=== PATIENT | male | born 1985 | race Caucasian/White ===

== ENCOUNTER 2020-10-02 12:47 | Emergency (ER) | payer OTHER, SELFPAY ==
--- NOTE | ~2020-10-02 | CT_ITS ---
EXAMINATION: CT ABDOMEN AND PELVIS WITH CONTRAST CLINICAL INFORMATION: Abdominal pain COMPARISON: 03/13/2020 TECHNIQUE: Multidetector volumetric images were obtained from the superior aspect of the liver through the pubic symphysis following administration 85 mL of Omnipaque 350 intravenous contrast. Sagittal and coronal reformatted images were obtained on the technologist's workstation. Oral contrast: No This CT examination was performed using dose optimization techniques as appropriate, variously including the following: *Automated exposure control *Adjustment of mA and/or kV according to patient size (this includes techniques or standardized protocols for targeted exams where dose is matched to indication/reason for exam; i.e. extremities or head) *Use of iterative reconstruction technique DLP: 474 mGy-cm FINDINGS: LUNG BASES: The visualized lung bases are unremarkable. LIVER, GALLBLADDER, AND BILIARY TREE: The liver is normal in size, shape, and attenuation. No focal hepatic lesion or biliary ductal dilatation is present. The gallbladder is unremarkable with no evidence of radiopaque gallstones, gallbladder wall thickening, or obvious pericholecystic inflammatory changes. PANCREAS: Unremarkable. SPLEEN: Unremarkable. ADRENAL GLANDS: Unremarkable. KIDNEYS AND URETERS: The kidneys are normal in size, shape, and attenuation. No hydronephrosis, hydroureter, or calculi seen. No perinephric stranding. BLADDER: Unremarkable. GASTROINTESTINAL TRACT: The stomach is unremarkable. Normal caliber small bowel. No obstruction. Normal appendix. No colonic wall thickening or inflammatory change. No free air or free fluid. ABDOMINAL WALL: No significant abdominal wall hernia. Right testicle retracted into the inguinal canal. LYMPH NODES: Normal. VASCULAR: Unremarkable. PELVIC VISCERA: The prostate and seminal vesicles are unremarkable. OSSEOUS STRUCTURES: Unremarkable. CT/CT abdomen pelvis w con IMPRESSION: No acute findings of the abdomen or pelvis. No inflammatory changes.
--- NOTE | ~2020-10-02 | XR_ITS ---
EXAMINATION: XR CHEST CLINICAL INFORMATION: Elevated white blood cell count COMPARISON: 03/13/2020 TECHNIQUE: 2 views of the chest were obtained. FINDINGS: Cardiac leads overlie the chest. The lungs are well expanded. There is no focal consolidation, edema, or effusion. No pneumothorax. The cardiomediastinal silhouette is within normal limits. No acute osseous abnormality. XR/XR chest 2V IMPRESSION: No acute pulmonary findings.
[2020-10-02 12:52] VITALS: BP 126/80; PULSE 66; O2SAT 100
--- NOTE | 2020-10-02 13:17 | ED.ABDPAIN ---
HPI - Abdominal Pain General Chief Complaint: General Medical Stated Complaint: ABD PAIN Time Seen by Provider: 10/02/20 12:50 Source: patient Mode of arrival: EMS Limitations: no limitations History of Present Illness HPI narrative: epigastric pain. In the waiting room patient had a syncopal event MD elicited complaint: abdominal pain Pertinent past history: gastritis Onset (ago): hour(s) Pain Consistency: constant Location: epigastric Severity: moderate Quality: cramping Exacerbating factors: eating Associated symptoms: nausea, vomiting, diarrhea and chills Related Data Previous Rx's Medication Instructions Recorded diphenhydramine HCl 25 mg capsule 25 mg PO DAILY PRN 30 Days #25 cap 09/28/20 prednisone 20 mg tablet 60 mg PO DAILY 3 Days #9 tab 09/28/20 Allergies Allergy/AdvReac Type Severity Reaction Status Date / Time No Known Allergies Allergy Unverified 03/16/20 19:46 Review of Systems Constitutional: Reports no additional constitutional complaints Eyes: Reports no additional eye complaints Denies dizziness Cardiovascular: Reports no additional cardiovascular complaints Respiratory: Reports as per HPI Gastrointestinal: Reports no additional gastrointestinal complaints Musculoskeletal: Reports no additional musculoskeletal complaints Skin/Breast: Denies rash Reports system reviewed and no additional complaints, except as documented, Denies dizziness and Denies Sensory deficit (Neuro) Psychiatric: Denies anxiety Physical Exam Vital Signs: Vital Signs: Last Vital Signs Temp 95.0 F L 10/02/20 15:13 Pulse 78 10/02/20 15:29 Resp 18 10/02/20 15:29 BP 113/74 10/02/20 15:29 Pulse Ox 100 10/02/20 15:29 Body Mass Index 28.8 Const: Other: ill appearing, diaphoretic Nutritional Appearance: average body habitus Orientation/consciousness: oriented to person and patient oriented x3 Limitations: no limitations HENMT: Head: Yes normal to inspection Ears: external ears normal General nose exam: Normal external nose present Mouth: Normal oral and palatal mucosa present and oropharynx normal Throat: Yes posterior oropharynx normal Eyes: General: appearance normal, both eyes and all related structures Neck: Other: supple Neck: Yes normal visual inspection Chest: Chest palpation & inspection: normal inspection of the chest Resp: Auscultation: clear to auscultation bilaterally Cardio: Jugular venous distension: no JVD Rate: regular rate Rhythm: regular rhythm Heart sounds: S1 normal heart sound present and S2 normal heart sound present GI: Other: epigastric tenderness, slight guarding Auscultation: normal bowel sounds : General: Yes no CVA tenderness Back/Spine/Pelvis: Back: no CVA tenderness Skin: General skin exam: no rashes or lesions noted Neuro: General: oriented to person and patient oriented x3 Cranial nerves: Yes CN's II-XII intact bilaterally Motor exam (neuro): 5/5 motor strength present throughout Sensory Exam: No Sensory deficit (Neuro) Extrem: General: Yes normal to inspection Psych: Appearance: grossly normal Course Course Course Narrative: A year ago patient had the same episode with a WBC 24k, he had CT abd which was negative. Patient currently has soft abdomen Reevaluation(s) Reevaluation #1: signed out to Dr. Barbosa [facility] - Abdominal Pain Lab Data Result diagrams: 10/02/20 13:54 10/02/20 13:54 Labs: Lab Results 10/02/20 10/02/20 10/02/20 Range/Units 13:02 13:54 13:54 WBC 30.8 H* (4.8-10.8) X10*3/uL RBC 5.12 (4.60-5.80) X10*6/uL Hgb 15.1 (14.0-18.0) g/dl Hct 43.8 (42-52) % MCV 85.5 (80-98) fL MCH 29.5 (27.0-33.0) pg MCHC 34.5 (31.0-36.0) g/dl RDW 13.0 (11.0-16.0) % Plt Count 451 H (160-400) X10*3/uL MPV 8.3 L (9.4-12.4) fL Immature Gran % (Auto) 1.1 H (0.0-0.4) % Neut % (Auto) 84.7 H (45-73) % Lymph % (Auto) 8.9 L (20-40) % Gates % (Auto) 4.7 (2-11) % Eos % (Auto) 0.3 (0-4) % Baso % (Auto) 0.3 (0-2) % Lymph # (Auto) 2.7 (1.2-4.9) X10*3/uL [place] # (Auto) 1.5 H (0.1-1.2) X10*3/uL Eos # (Auto) 0.1 (0.0-0.4) X10*3/uL Baso # (Auto) 0.1 (0.0-0.2) X10*3/uL Abs Immat Gran (auto) 0.33 H (0.00-0.03) X10*3/uL Absolute Neuts (auto) 26.1 H (2.0-8.3) X10*3/uL Absolute Nucleated RBC 0.000 (0.0-0.012) X10*3/uL Nucleated RBC % (auto) 0.0 (0.0-0.2) /100WBC Smear Tech's Comments VERIFIED Sodium 136 (135-145) mmol/L Potassium 3.8 (3.3-5.1) mmol/L Chloride 99 (96-108) mmol/L Carbon Dioxide 23 (22-29) mmol/L Anion Gap 18 (12-20) BUN 19 H (9-16) mg/dL Creatinine 0.90 (0.5-1.4) mg/dL Estim Creat Clear Calc 104.9 Estimated GFR > 60 POC Glucose 294 H (60-115) mg/dL Random Glucose 309 H (60-115) mg/dL Lactic Acid (0.5-2.0) mmol/L Calcium 9.6 (8.4-10.2) mg/dL Total Bilirubin 0.3 (0.0-1.0) mg/dL Direct Bilirubin 0.2 (0.0-0.5) mg/dL AST 16 (5-37) U/L ALT 14 (0-40) U/L Alkaline Phosphatase 100 (39-117) U/L Troponin I High Sens (<3.5-35.0) ng/L Total Protein 8.1 H (6.5-8.0) g/dL Albumin 4.8 (3.5-5.0) g/dL Lipase 15 (8-78) U/L Urine Color Urine Appearance Urine pH (5.0-8.0) Ur Specific [place] (1.005-1.025) Urine Protein (NEG-TRACE) MG/DL Urine Glucose (UA) (NEG) MG/DL Urine Ketones (NEG) MG/DL Urine Blood (NEG) Urine Nitrite (NEG) Ur Leukocyte Esterase (NEG) Urine RBC (0) /HPF Urine WBC (0-4) /HPF Ur Squamous Epith Cells /LPF Urine Bacteria /LPF Hyaline Casts /LPF 10/02/20 10/02/20 10/02/20 Range/Units 13:54 15:31 15:46 WBC (4.8-10.8) X10*3/uL RBC (4.60-5.80) X10*6/uL Hgb (14.0-18.0) g/dl Hct (42-52) % MCV (80-98) fL MCH (27.0-33.0) pg MCHC (31.0-36.0) g/dl RDW (11.0-16.0) % Plt Count (160-400) X10*3/uL MPV (9.4-12.4) fL Immature Gran % (Auto) (0.0-0.4) % Neut % (Auto) (45-73) % Lymph % (Auto) (20-40) % Gates % (Auto) (2-11) % Eos % (Auto) (0-4) % Baso % (Auto) (0-2) % Lymph # (Auto) (1.2-4.9) X10*3/uL [place] # (Auto) (0.1-1.2) X10*3/uL Eos # (Auto) (0.0-0.4) X10*3/uL Baso # (Auto) (0.0-0.2) X10*3/uL Abs Immat Gran (auto) (0.00-0.03) X10*3/uL Absolute Neuts (auto) (2.0-8.3) X10*3/uL Absolute Nucleated RBC (0.0-0.012) X10*3/uL Nucleated RBC % (auto) (0.0-0.2) /100WBC Smear Tech's Comments Sodium (135-145) mmol/L Potassium (3.3-5.1) mmol/L Chloride (96-108) mmol/L Carbon Dioxide (22-29) mmol/L Anion Gap (12-20) BUN (9-16) mg/dL Creatinine (0.5-1.4) mg/dL Estim Creat Clear Calc Estimated GFR POC Glucose (60-115) mg/dL Random Glucose (60-115) mg/dL Lactic Acid 1.9 (0.5-2.0) mmol/L Calcium (8.4-10.2) mg/dL Total Bilirubin (0.0-1.0) mg/dL Direct Bilirubin (0.0-0.5) mg/dL AST (5-37) U/L ALT (0-40) U/L Alkaline Phosphatase (39-117) U/L Troponin I High Sens < 3.5 (<3.5-35.0) ng/L Total Protein (6.5-8.0) g/dL Albumin (3.5-5.0) g/dL Lipase (8-78) U/L Urine Color STRAW Urine Appearance CLEAR Urine pH 5.5 (5.0-8.0) Ur Specific [place] 1.020 (1.005-1.025) Urine Protein NEG (NEG-TRACE) MG/DL Urine Glucose (UA) >=1000 H (NEG) MG/DL Urine Ketones 40 (NEG) MG/DL Urine Blood NEG (NEG) Urine Nitrite NEG (NEG) Ur Leukocyte Esterase NEG (NEG) Urine RBC 0-2 (0) /HPF Urine WBC 0-2 (0-4) /HPF Ur Squamous Epith Cells 1+ /LPF Urine Bacteria NONE /LPF Hyaline Casts 1-4 /LPF Discharge Plan Discharge Prescriptions: No Action prednisone 20 mg tablet 60 mg PO DAILY 3 Days Qty: 9 RF: 0 diphenhydramine HCl [Benadryl] 25 mg capsule 25 mg PO DAILY PRN (Reason: allergic reaction) 30 Days Qty: 25 RF: 0 PMFSH Past Medical History Medical History (Updated 10/02/20 @ 13:37 by Linda Spear RN) Diabetic acetonemia Social History Social History Alcohol intake: never Smoking Status: Current every day smoker Use of substances other than those prescribed or required for medical reasons: Yes Substance Use Type: Marijuana Substance Use Frequency: Daily Advance Directives: No Advance Directives Information Provided: Yes
[2020-10-02 13:23] VITALS: BP 125/71; PULSE 57; RESP 18; TEMP 36.1; O2SAT 100; BMI 28.8
[2020-10-02 13:23] LABS: Glucose, Whole Blood 294 mg/dL (60-115)
--- NOTE | 2020-10-02 13:32 | ECG_ITS ---
Test Reason : WEAKNESS Blood Pressure : / mmHG Vent. Rate : 062 BPM Atrial Rate : 065 BPM P-R Int : 148 ms QRS Dur : 082 ms QT Int : 428 ms P-R-T Axes : 070 067 044 degrees QTc Int : 434 ms Normal sinus rhythm with sinus arrhythmia Normal ECG When compared with ECG of 13-MAR-2020 11:57, Vent. rate has decreased BY 38 BPM Nonspecific T wave abnormality no longer evident in Inferior leads Nonspecific T wave abnormality no longer evident in Lateral leads Referred By: Luis Arriola Electronically Signed By:MARSHA JULIAN MD
--- NOTE | 2020-10-02 13:57 | PC.NURSE ---
iv inserted, labs drawn
[2020-10-02 14:04] LABS: Basophils Absolute Auto 0.1 X10*3/uL (0.0-0.2); Basophils Percent Auto 0.3 % (0-2); Eosinophils Absolute Auto 0.1 X10*3/uL (0.0-0.4); Eosinophils Percent Auto 0.3 % (0-4); Hematocrit 43.8 % (42-52); Hemoglobin 15.1 g/dl (14.0-18.0); Imm Gran Abs Auto 0.33 X10*3/uL (0.00-0.03); Imm Gran Pct Auto 1.1 % (0.0-0.4); Lymphocytes Absolute Auto 2.7 X10*3/uL (1.2-4.9); Lymphocytes Percent Auto 8.9 % (20-40); MANUAL DIFF FLAG SCAN; Mean Corpuscular HGB Conc 34.5 g/dl (31.0-36.0); Mean Corpuscular Hemoglobin 29.5 pg (27.0-33.0); Mean Corpuscular Volume 85.5 fL (80-98); Mean Platelet Volume 8.3 fL (9.4-12.4); Monocytes Absolute Auto 1.5 X10*3/uL (0.1-1.2); Monocytes Percent Auto 4.7 % (2-11); Neutrophils Absolute Auto 26.1 X10*3/uL (2.0-8.3); Neutrophils Percent Auto 84.7 % (45-73); Platelet Count 451 X10*3/uL (160-400); Red Blood Count 5.12 X10*6/uL (4.60-5.80); SCAN SMEAR FLAG 1
[2020-10-02] MEDS: Pantoprazole Sodium 40 MG/10 ML VIAL IVPUSH (14:07)
[2020-10-02] MEDS: Insulin Regular, Human 100 UNIT/ML 3 ML VIAL SUBCUT (14:07)
[2020-10-02] MEDS: ondansetron HCL 4 MG/2 ML VIAL IVPUSH (14:07)
[2020-10-02] MEDS: 0.9 % Sodium Chloride 1,000 ML 999 ML IVCONT ×2 (14:07→14:12)
[2020-10-02 14:09] LABS: White Blood Count 30.8 X10*3/uL (4.8-10.8)
--- NOTE | 2020-10-02 14:10 | PC.NURSE ---
Addendum entered by Linda Spear RN 10/02/20 14:10: patient medicated per order, monitoring tech sinus sudhir 50s-60s,vss, will continue to monitor. Original Note: patient
[2020-10-02 14:25] LABS: SLIDE REVIEW VERIFIED
[2020-10-02 14:34] LABS: Alanine Aminotransferase 14 U/L (0-40); Albumin Level 4.8 g/dL (3.5-5.0); Alkaline Phosphatase 100 U/L (39-117); Anion Gap 18 (12-20); Aspartate Amino Transferase 16 U/L (5-37); Bilirubin Direct 0.2 mg/dL (0.0-0.5); Bilirubin Total 0.3 mg/dL (0.0-1.0); Blood Urea Nitrogen 19 mg/dL (9-16); Calcium 9.6 mg/dL (8.4-10.2); Carbon Dioxide 23 mmol/L (22-29); Chloride 99 mmol/L (96-108); Creatinine Clr Calc Pharmacy 104.9; Estimated Glomerular Filt Rate > 60; Glucose Random 309 mg/dL (60-115); Lipase 15 U/L (8-78); Potassium 3.8 mmol/L (3.3-5.1); Sodium 136 mmol/L (135-145); Total Protein 8.1 g/dL (6.5-8.0)
[2020-10-02 14:39] LABS: Troponin-I High Sensitivity < 3.5 ng/L (<3.5-35.0)
[2020-10-02 15:13] VITALS: BP 126/68; PULSE 79; RESP 18; TEMP 35; O2SAT 100
--- NOTE | 2020-10-02 15:25 | PC.NURSE ---
blood cultures drawn, tech to draw VL as patients site blew before being able to obtain the VL
--- NOTE | 2020-10-02 15:27 | PC.NURSE ---
2 liters fluid completed at the same time at 1513.
[2020-10-02 15:29] VITALS: BP 113/74; PULSE 78; RESP 18; O2SAT 100
[2020-10-02 15:40] LABS: Glucose Urine UA >=1000 MG/DL (NEG); Leukocyte Esterase Urine NEG (NEG); Nitrite Urine NEG (NEG); PH 5.5 (5.0-8.0); Urine Blood NEG (NEG); Urine Ketones 40 MG/DL (NEG); Urine Protein NEG (NEG-TRACE)
[2020-10-02 15:47] LABS: Appearance Urine CLEAR; Color Urine STRAW
[2020-10-02 16:06] LABS: RBC Urine 0-2 /HPF (0); WBC Urine 0-2 /HPF (0-4)
[2020-10-02] MEDS: Morphine Sulfate 4 MG/ML CARTRIDGE IVPUSH (16:06)
--- NOTE | 2020-10-02 16:06 | PC.NURSE ---
pt medicated per order, vitals stable, director of cardiac rehabilitation sinus sudhir 60s, will continue to monitor.
[2020-10-02 16:07] LABS: Squamous Epithelial Cell Urine 1+ /LPF
[2020-10-02 16:10] LABS: Lactic Acid 1.9 mmol/L (0.5-2.0)
--- NOTE | 2020-10-02 16:46 | PC.NURSE ---
pt returned from CT scan, family at bedside
[2020-10-02] MEDS: Lidocaine HCl Viscous 2 % 15 ML SOLUTION MUCOUS MEM (18:01)
[2020-10-02] MEDS: Magnesium Hydrox/Alum Hydrox 30 ML ORAL.SUSP PO (18:01)
--- NOTE | 2020-10-02 18:01 | PC.NURSE ---
pt medicated per order
[2020-10-02 18:30] VITALS: BP 120/72; PULSE 72; RESP 18; TEMP 36.6; O2SAT 100
== END 2020-10-02 18:45 | disposition home or self-care (01) ==
PROVIDERS: Emergency Provider Emergency Medicine
DX: K29.00 Acute gastritis without bleeding (principal); D72.829 Elevated white blood cell count, unspecified; E11.9 Type 2 diabetes mellitus without complications; F12.90 Cannabis use, unspecified, uncomplicated; F17.200 Nicotine dependence, unspecified, uncomplicated; Z79.52 Long term (current) use of systemic steroids
CPT/HCPCS: 36415; 71046; 74177; 80048; 80076; 81001; 82947; 83605; 83690; 84484; 85025; 87040; 93005; 96361; 96374; 96375; 99284; 99285; J2270; J2405; Q9967

== ENCOUNTER 2021-08-04 15:38 | Emergency (ER) | payer OTHER, SELFPAY ==
--- NOTE | ~2021-08-04 | CT_ITS ---
EXAMINATION: CT ABDOMEN AND PELVIS WITHOUT CONTRAST CLINICAL INFORMATION: Left groin pain and swelling COMPARISON: CT abdomen and pelvis 10/02/2020 TECHNIQUE: Multidetector volumetric imaging was performed from the superior aspect of the liver through the pubic symphysis. Sagittal and coronal reformatted images were obtained on the technologist's workstation. This CT examination was performed using dose optimization techniques as appropriate, variously including the following: *Automated exposure control *Adjustment of mA and/or kV according to patient size (this includes techniques or standardized protocols for targeted exams where dose is matched to indication/reason for exam; i.e. extremities or head) *Use of iterative reconstruction technique DLP: 499 mGy-cm FINDINGS: LUNG BASES: The visualized lung bases are unremarkable. LIVER, GALLBLADDER, AND BILIARY TREE: The liver is normal in size, shape, and attenuation. No focal hepatic lesion or biliary ductal dilatation is present. The gallbladder is unremarkable with no evidence of radiopaque gallstones, gallbladder wall thickening, or obvious pericholecystic inflammatory changes. PANCREAS: Unremarkable. SPLEEN: Unremarkable. ADRENAL GLANDS: Unremarkable. KIDNEYS AND URETERS: The kidneys are normal in size, shape, and attenuation. No hydronephrosis, hydroureter, or calculi seen. No perinephric stranding. BLADDER: Empty and poorly evaluated GASTROINTESTINAL TRACT: The small and large bowel are unremarkable. The appendix is unremarkable. ABDOMINAL WALL: There is streaky density seen in the left groin subcutaneous tissues with associated skin thickening. A definite fluid collection is not seen. Some inguinal lymph nodes are present which are slightly more prominent than previously noted. No hernia is seen. LYMPH NODES: Small gastrohepatic ligament lymph nodes are unchanged. VASCULAR: Unremarkable. PELVIC VISCERA: Unremarkable. OSSEOUS STRUCTURES: Unremarkable. CT/CT abdomen pelvis wo con IMPRESSION: There is soft tissue swelling with streaky changes in the fat and associated skin thickening in the left groin possibly representing cellulitis. No fluid collection or abscess is seen. No groin hernia is present. No other abnormality is detected. Fleischner guidelines were followed.
[2021-08-04 15:41] VITALS: BP 118/74; PULSE 85; O2SAT 100
[2021-08-04 15:47] VITALS: BP 128/64; PULSE 84; RESP 18; TEMP 36.4; O2SAT 98; BMI 25.4
--- NOTE | 2021-08-04 16:29 | ED_ITS ---
HPI - Skin/Abscess/Foreign Bdy General Chief complaint: Skin/Abscess/Foreign Body Stated complaint: LEFT THIGH PAIN/SWELLING FROM CYST PER EMS Time Seen by Provider: 08/04/21 15:42 Source: patient and EMS Mode of arrival: EMS Limitations: no limitations History of Present Illness HPI narrative: 35-year-old male with a history of type 2 diabetes here with reports of left groin swelling and pain since waking yesterday. Patient denies any testicular pain, urinary symptoms, fevers, chills or vomiting. Patient tells me that he got up yesterday morning to urinate and that is when he noticed the bump. He denies any recent illnesses or fevers or chills. No new sexual partners. No rashes or joint pain. No recent history of heavy lifting with pain or any pain with coughing or sneezing. Related Data Previous Rx's Medication Instructions Recorded diphenhydramine HCl 25 mg capsule 25 mg PO DAILY PRN 30 Days #25 09/28/20 cap (Benadryl) prednisone 20 mg tablet 60 mg PO DAILY 3 Days #9 tab 09/28/20 dicyclomine 20 mg tablet 20 mg PO TID PRN #20 tab 10/02/20 pantoprazole 40 mg tablet,delayed 40 mg PO DAILY #30 tab 10/02/20 release (Protonix) sucralfate 1 gram tablet 1 g PO TID #90 tab 10/02/20 dicyclomine 20 mg tablet 20 mg PO TID PRN #10 tab 10/04/20 ondansetron HCl 4 mg tablet 4 mg PO Q8H PRN #10 tab 10/04/20 (Zofran) pantoprazole 40 mg tablet,delayed 40 mg PO DAILY #10 tab 10/04/20 release (Protonix) sucralfate 1 gram tablet 1 g PO TID #20 tab 10/04/20 (Carafate) doxycycline monohydrate 100 mg 100 mg PO BID #20 tab 08/04/21 tablet ibuprofen 600 mg tablet 600 mg PO Q6H PRN #20 tab 08/04/21 Allergies Allergy/AdvReac Type Severity Reaction Status Date / Time No Known Allergies Allergy Verified 08/04/21 15:49 Review of Systems Verdana 4l Review of Systems: Yes all other systems are reviewed and Verdana 4d are negative Verdana 4l Constitutional: Verdana 4d Constitutional: Verdana 4d Verdana 4d Reports no additional constitutional complaints, Denies body ache(s), Denies chills, Denies fever(s), Denies headache(s) and Denies weakness Verdana 4l Eyes: Verdana 4d Verdana 4d Eyes: Verdana 4d Reports no additional eye complaints and Denies change in vision Verdana 4l ENT: Verdana 4d Reports system reviewed and no additional complaints, except as documented, Denies dizziness, Denies headache(s), Denies nasal congestion, Denies nasal discharge and Denies neck pain Verdana 4l Cardiovascular: Verdana 4d Cardiovascular: Verdana 4d Verdana 4d Reports no additional cardiovascular complaints, Denies chest pain, Denies leg edema and Denies dyspnea Verdana 4l Respiratory: Verdana 4d Verdana 4d Respiratory: Verdana 4d Reports no additional respiratory complaints, Denies cough and Denies dyspnea Verdana 4l Gastrointestinal: Verdana 4d Gastrointestinal: Verdana 4d Verdana 4d Reports no additional gastrointestinal complaints, Denies abdominal pain, Denies diarrhea, Denies nausea and Denies vomiting Verdana 4l Genitourinary: Verdana 4d Verdana 4d Genitourinary: Verdana 4d Denies penile discharge, Denies testicular mass, Denies testicular pain, Denies urinary frequency, Denies urinary hesitancy, Denies urinary incontinence and Denies urinary urgency Verdana 4l Musculoskeletal: Verdana 4d Musculoskeletal: Verdana 4d Verdana 4d Reports no additional musculoskeletal complaints, Denies back pain, Denies arthralgias, Denies joint swelling, Denies neck pain, Denies numbness and Denies tingling Verdana 4l Integumentary/Breasts: Verdana 4d Skin/Breast: Verdana 4d Verdana 4d Reports system reviewed and no additional complaints, except as docu, Reports swelling, Reports erythema and Denies rash Verdana 4l Neurologic: Verdana 4d Reports system reviewed and no additional complaints, except as documented, Denies Abnormal speech present, Denies dizziness, Denies headache(s), Denies numbness, Denies tingling and Denies weakness PMFSH Past Medical History Attestation statement: The following information was validated with the patient. 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 Resp 18 08/04/21 15:47 BP 128/64 08/04/21 15:47 Pulse Ox 98 08/04/21 15:47 BMI result Body Mass Index 25.4 Const: General: cooperative, healthy appearing, comfortable and no acute distress Orientation/consciousness: patient oriented x3 Limitations: no limitations HENMT: Head: Yes normal to inspection Ears: hearing grossly normal bilaterally General nose exam: Normal external nose present Face and sinus: Yes normal facial exam Mouth: Normal oral and palatal mucosa present Throat: Yes posterior oropharynx normal Eyes: General: appearance normal, both eyes and all related structures Pupils: Equal, round and reactive pupils present Neck: Neck: Yes normal visual inspection Chest: Chest palpation & inspection: normal inspection of the chest Resp: Effort & Inspection: normal respiratory effort Auscultation: clear to auscultation bilaterally Cardio: Rate: regular rate Rhythm: regular rhythm Peripheral pulses: Peripheral pulses 2+ throughout GI: Inspection: Yes normal to inspection Palpation (GI): Soft to palpation and nontender Auscultation: normal bowel sounds : Male General Exam: Yes normal external exam Penis: uncircumcised Meatus: meatus normal Scrotum: scrotum normal Testes: Testes normal, no testicular mass, no testicular swelling, no testicular tenderness and normal testicular lie Male genitals images: 1. Swelling with tenderness. No palpable mass. No lymphadenopathy. No fluctuance or induration or central pointing or drainage to suggest an abscess. Back/Spine/Pelvis: Thoracic/Lumbar Spine: thoracic and lumbar spine normal to inspection Skin: General skin exam: no rashes or lesions noted Neuro: General: patient oriented x3, no focal motor deficits and normal sensation to monofilament Cranial nerves: Yes Equal, round and reactive pupils present Cognition (Neuro): normal cognition Speech: No Abnormal speech present Gait exam (Neuro): Normal gait present Motor exam (neuro): 5/5 motor strength present throughout Extrem: General: Yes normal to inspection Course Course Course Narrative: 35-year-old male here with reports of swelling and pain to the left groin since yesterday with waking. No other complaints On exam the patient has swelling and tenderness the left groin. There is no pa lpable lymphadenopathy. There is no fluctuance or induration or central pointing or drainage to suggest an abscess. Both testicles are normal with no tenderness. Ultrasound brought to the bedside which shows no drainable fluid collection ?hernia Check CT, labs, UA, provide analgesia 1744-Ct shows There is soft tissue swelling with streaky changes in the fat and associated skin thickening in the left groin possibly representing cellulitis. No fluid collection or abscess is seen. No groin hernia is present. No other abnormality is detected.? ? Add on lactic acid, blood cultures. 1744-Reviewed labs which show leukocytosis with no shift. On review of chart previous WBC (03/13/20-24.6, 10/02/20 30.8). ?chronic. No reports of fever. Additionally mildly elevated glucose with no evidence of DKA. UA shows >[address] NG pending. Patient wants to hold on treatment until results are back. Discussed case with Dr Garcia. Exam is not convincing for cellultis. as there is a local area of swelling/redness/erythema that is local to the groin with no extension to the abdomen/perineum or testicles. Very non impressive for cellulitis. No drainable collection seen on bedside US or CT scan. Patient is nontoxic appearing. He is afebrile. He is tolerating p.o. with no vomiting. I do not think patient requires admission as his labs appear at baseline and he appears well. Plan for discharge home on oral antibiotics and follow-up with PCP outpatient. Reviewed worrisome signs and symptoms such as fever, vomiting, increasing redness or swelling or any rapid progression of symptoms and when to return to the emergency department. Comfortable plan for discharge home MDM - Skin/Abscess/Foreign Bdy MDM Narrative Medical decision making narrative: low concern for fourniers with no extension into perineum, patient non toxic with stable vitals Medical Records Attestation: I reviewed the patient's medical records. Lab Data Attestation: I reviewed the patient's lab results. Result diagrams: 08/04/21 16:39 08/04/21 16:39 Labs: Lab Results 08/04/21 08/04/21 08/04/21 Range/Units 16:39 16:39 17:04 WBC 19.9 H (4.8-10.8) X10*3/uL RBC 4.97 (4.60-5.80) X10*6/uL Hgb 14.7 (14.0-18.0) g/dl Hct 42.2 (42.0-52.0) % MCV 84.9 (80.0-98.0) fL MCH 29.6 (27.0-33.0) pg MCHC 34.8 (31.0-36.0) g/dl RDW 12.2 (11.0-16.0) % Plt Count 391 (160-400) X10*3/uL MPV 8.6 L (9.4-12.4) fL Immature Gran % (Auto) 0.6 H (0.0-0.4) % Neut % (Auto) 76.8 H (45-73) % Lymph % (Auto) 14.9 L (20-40) % [place] % (Auto) 6.8 (2-11) % Eos % (Auto) 0.7 (0-4) % Baso % (Auto) 0.2 (0-2) % Lymph # (Auto) 3.0 (1.2-4.9) X10*3/uL [place] # (Auto) 1.4 H (0.1-1.2) X10*3/uL Eos # (Auto) 0.1 (0.0-0.4) X10*3/uL Baso # (Auto) 0.0 (0.0-0.2) X10*3/uL Abs Immat Gran (auto) 0.11 H (0.00-0.03) X10*3/uL Absolute Neuts (auto) 15.3 H (2.0-8.3) x10*3/uL Absolute Nucleated RBC 0.000 (0.0-0.012) X10*3/uL Nucleated RBC % (auto) 0.0 (0.0-0.2) /100WBC Sodium 137 (135-145) mmol/L Potassium 4.1 (3.3-5.1) mmol/L Chloride 102 (96-108) mmol/L Carbon Dioxide 27 (22-29) mmol/L Anion Gap 12 (12-20) BUN 9 (9-16) mg/dL Creatinine 0.85 (0.5-1.4) mg/dL Estim Creat Clear Calc 99.6 Estimated GFR > 60 Random Glucose 315 H (60-115) mg/dL Calcium 9.6 (8.4-10.2) mg/dL Total Bilirubin 0.6 (0.0-1.0) mg/dL Direct Bilirubin 0.2 (0.0-0.5) mg/dL AST 14 (5-37) U/L ALT 21 (0-40) U/L Alkaline Phosphatase 145 H D (39-117) U/L C-Reactive Protein 6.01 H (< or = 0.50) mg/dL Total Protein 7.3 (6.5-8.0) g/dL Albumin 4.3 (3.5-5.0) g/dL Urine Color YELLOW Urine Appearance CLEAR Urine pH 6.0 (5.0-8.0) Ur Specific [place] 1.010 (1.005-1.025) Urine Protein NEG (NEG-TRACE) MG/DL Urine Glucose (UA) >=1000 H (NEG) MG/DL Urine Ketones NEG (NEG) MG/DL Urine Blood NEG (NEG) Urine Nitrite NEG (NEG) Ur Leukocyte Esterase NEG (NEG) Urine RBC 0-2 (0) /HPF Urine WBC 0-2 (0-4) /HPF Ur Squamous Epith Cells 1+ /LPF Ur Renal Epithelial Cell TRACE /LPF Talc Crystals TRACE /LPF Urine Bacteria NONE /LPF Urine Yeast 2+ /HPF Imaging Data CT scan - abdomen: Attestation: I personally reviewed and interpreted this imaging study as follows: Radiologist's impression: FINDINGS: LUNG BASES: The visualized lung bases are unremarkable.? LIVER, GALLBLADDER, AND BILIARY TREE: The liver is normal in size, shape, and attenuation. No focal hepatic lesion or biliary ductal dilatation is present. The gallbladder is unremarkable with no evidence of radiopaque gallstones, gallbladder wall thickening, or obvious pericholecystic inflammatory changes.? PANCREAS: Unremarkable.? SPLEEN: Unremarkable.? ADRENAL GLANDS: Unremarkable.? KIDNEYS AND URETERS: The kidneys are normal in size, shape, and attenuation. No hydronephrosis, hydroureter, or calculi seen. No perinephric stranding. ? BLADDER: Empty and poorly evaluated? GASTROINTESTINAL TRACT: The small and large bowel are unremarkable. The appendix is unremarkable.? ABDOMINAL WALL: There is streaky density seen in the left groin subcutaneous tissues with associated skin thickening. A definite fluid collection is not seen. Some inguinal lymph nodes are present which are slightly more prominent than previously noted. No hernia is seen.? LYMPH NODES: Small gastrohepatic ligament lymph nodes are unchanged. VASCULAR: Unremarkable. PELVIC VISCERA: Unremarkable.? OSSEOUS STRUCTURES: Unremarkable.? CT/CT abdomen pelvis wo con IMPRESSION: There is soft tissue swelling with streaky changes in the fat and associated skin thickening in the left groin possibly representing cellulitis. No fluid collection or abscess is seen. No groin hernia is present. No other abnormality is detected.? ? Fleischner guidelines were followed. Discharge Plan Discharge Clinical Impression: Cellulitis Patient Disposition: Home, Self-Care Instructions: Cellulitis (DC), Warm Compress or Soak (ED) Additional Instructions: Warm compresses to the area Return for fever, increasing redness or swelling, vomiting Your CT scan does not show any hernia or drainable fluid collection Prescriptions: New doxycycline monohydrate 100 mg tablet 100 mg PO BID Qty: 20 0RF ibuprofen 600 mg tablet 600 mg PO Q6H PRN (Reason: pain) Qty: 20 0RF No Action prednisone 20 mg tablet 60 mg PO DAILY 3 Days Qty: 9 0RF diphenhydramine HCl [Benadryl] 25 mg capsule 25 mg PO DAILY PRN (Reason: allergic reaction) 30 Days Qty: 25 0RF pantoprazole [Protonix] 40 mg tablet,delayed release (DR/EC) 40 mg PO DAILY Qty: 30 0RF sucralfate 1 gram tablet 1 g PO TID Qty: 90 0RF dicyclomine 20 mg tablet 20 mg PO TID PRN (Reason: abdominal pain) Qty: 20 0RF ondansetron HCl [Zofran] 4 mg tablet 4 mg PO Q8H PRN (Reason: nausea and vomiting) Qty: 10 0RF sucralfate [Carafate] 1 gram tablet 1 g PO TID Qty: 20 0RF pantoprazole [Protonix] 40 mg tablet,delayed release (DR/EC) 40 mg PO DAILY Qty: 10 0RF dicyclomine 20 mg tablet 20 mg PO TID PRN (Reason: abdominal discomfort) Qty: 10 0RF Referrals: Physician,Unknown J [Primary Care Provider] - 2 days (as needed your PCP)
[2021-08-04 16:54] LABS: MANUAL DIFF FLAG NO
[2021-08-04 16:55] LABS: Basophils Percent Auto 0.2 % (0-2); Eosinophils Absolute Auto 0.1 X10*3/uL (0.0-0.4); Eosinophils Percent Auto 0.7 % (0-4); Hematocrit 42.2 % (42.0-52.0); Hemoglobin 14.7 g/dl (14.0-18.0); Imm Gran Abs Auto 0.11 X10*3/uL (0.00-0.03); Imm Gran Pct Auto 0.6 % (0.0-0.4); Lymphocytes Percent Auto 14.9 % (20-40); Mean Corpuscular HGB Conc 34.8 g/dl (31.0-36.0); Mean Corpuscular Hemoglobin 29.6 pg (27.0-33.0); Mean Corpuscular Volume 84.9 fL (80.0-98.0); Mean Platelet Volume 8.6 fL (9.4-12.4); Monocytes Absolute Auto 1.4 X10*3/uL (0.1-1.2); Monocytes Percent Auto 6.8 % (2-11); Neutrophils Absolute Auto 15.3 x10*3/uL (2.0-8.3); Neutrophils Percent Auto 76.8 % (45-73); Platelet Count 391 X10*3/uL (160-400); Red Blood Count 4.97 X10*6/uL (4.60-5.80); Red Cell Distribution Width 12.2 % (11.0-16.0); White Blood Count 19.9 X10*3/uL (4.8-10.8)
[2021-08-04] MEDS: Ketorolac Tromethamine 60 MG/2 ML VIAL IM (17:10)
[2021-08-04 17:11] LABS: Appearance Urine CLEAR; Color Urine YELLOW; Glucose Urine UA >=1000 MG/DL (NEG); Leukocyte Esterase Urine NEG (NEG); Nitrite Urine NEG (NEG); Urine Blood NEG (NEG); Urine Ketones NEG (NEG); Urine Protein NEG (NEG-TRACE)
[2021-08-04 17:15] LABS: Anion Gap 12 (12-20); Blood Urea Nitrogen 9 mg/dL (9-16); Calcium 9.6 mg/dL (8.4-10.2); Carbon Dioxide 27 mmol/L (22-29); Chloride 102 mmol/L (96-108); Creatinine Clr Calc Pharmacy 99.6; Estimated Glomerular Filt Rate > 60; Glucose Random 315 mg/dL (60-115); Potassium 4.1 mmol/L (3.3-5.1); Sodium 137 mmol/L (135-145)
[2021-08-04 17:39] LABS: RBC Urine 0-2 /HPF (0); Renal Epithelial Cells Urine TRACE /LPF; Squamous Epithelial Cell Urine 1+ /LPF; Urine Talc Crystals TRACE /LPF; WBC Urine 0-2 /HPF (0-4)
[2021-08-04 17:41] LABS: Alanine Aminotransferase 21 U/L (0-40); Albumin Level 4.3 g/dL (3.5-5.0); Alkaline Phosphatase 145 U/L (39-117); Aspartate Amino Transferase 14 U/L (5-37); Bilirubin Direct 0.2 mg/dL (0.0-0.5); Bilirubin Total 0.6 mg/dL (0.0-1.0); Total Protein 7.3 g/dL (6.5-8.0)
[2021-08-04 18:00] VITALS: BP 124/66; PULSE 88; RESP 16; TEMP 36.9; O2SAT 97
[2021-08-04 18:12] LABS: C Reactive Protein 6.01 mg/dL (< or = 0.50)
[2021-08-05 01:23] LABS: CT PCR NOT DETECTED (Not Detect.)
[2021-08-05 01:24] LABS: NG PCR NOT DETECTED (Not Detect.)
== END 2021-08-04 18:49 | disposition home or self-care (01) ==
PROVIDERS: Nurse Practitioner Family; Emergency Provider Emergency Medicine Emergency Medical Services
DX: L03.314 Cellulitis of groin (principal); R10.32 Left lower quadrant pain
CPT/HCPCS: 36415; 74176; 80048; 80076; 81001; 85025; 86140; 87040; 87491; 87591; 96372; 99283; 99284; J1885

== ENCOUNTER 2021-08-11 13:53 | Emergency (ER) | payer OTHER, SELFPAY ==
[2021-08-11 13:56] VITALS: BP 108/76; PULSE 78
[2021-08-11 13:59] VITALS: BP 108/76; PULSE 76
[2021-08-11 14:21] VITALS: BP 107/64; PULSE 73; RESP 19; TEMP 36.6; O2SAT 98; BMI 25.4
[2021-08-11] MEDS: Lidocaine HCl 2 % MPF 5 ML VIAL SUBCUT (16:16)
--- NOTE | 2021-08-11 16:16 | ED_ITS ---
HPI - Wound/Laceration General Chief Complaint: Wound/Laceration Stated Complaint: GROIN ULCER Time Seen by Provider: 08/11/21 14:46 Source: patient and EMS Mode of arrival: EMS Limitations: no limitations History of Present Illness HPI narrative: 35-year-old male with a history of diabetes here with reports of left groin wound. Patient tells me he was seen here on August 04 and was diagnosed with cellulitis of the left groin. He was started on doxycycline which he has been taking twice daily. Yesterday after moving his bowels he noticed that that there seemed to be some drainage from the groin site. Today he had some bleeding which prompted his ER visit. He denies any fevers or chills. Related Data Previous Rx's Medication Instructions Recorded diphenhydramine HCl 25 mg capsule 25 mg PO DAILY PRN 30 Days #25 cap 09/28/20 (Benadryl) prednisone 20 mg tablet 60 mg PO DAILY 3 Days #9 tab 09/28/20 dicyclomine 20 mg tablet 20 mg PO TID PRN #20 tab 10/02/20 pantoprazole 40 mg tablet,delayed 40 mg PO DAILY #30 tab 10/02/20 release (Protonix) sucralfate 1 gram tablet 1 g PO TID #90 tab 10/02/20 dicyclomine 20 mg tablet 20 mg PO TID PRN #10 tab 10/04/20 ondansetron HCl 4 mg tablet 4 mg PO Q8H PRN #10 tab 10/04/20 (Zofran) pantoprazole 40 mg tablet,delayed 40 mg PO DAILY #10 tab 10/04/20 release (Protonix) sucralfate 1 gram tablet (Carafate) 1 g PO TID #20 tab 10/04/20 doxycycline monohydrate 100 mg 100 mg PO BID #20 tab 08/04/21 tablet ibuprofen 600 mg tablet 600 mg PO Q6H PRN #20 tab 08/04/21 cephalexin 500 mg capsule 500 mg PO BID #14 cap 08/11/21 Allergies Allergy/AdvReac Type Severity Reaction Status Date / Time No Known Allergies Allergy Verified 08/04/21 15:49 Review of Systems Review of Systems: Yes all other systems are reviewed and are negative Constitutional: Constitutional: Reports no additional constitutional complaints, Denies body ache(s), Denies chills, Denies fever(s), Denies headache(s) and Denies weakness Eyes: Eyes: Reports no additional eye complaints and Denies change in vision ENT: Reports system reviewed and no additional complaints, except as documented, Denies dizziness, Denies headache(s), Denies nasal congestion, Denies nasal discharge and Denies neck pain Cardiovascular: Cardiovascular: Reports no additional cardiovascular complaints, Denies chest pain, Denies leg edema and Denies dyspnea Respiratory: Respiratory: Reports no additional respiratory complaints, Denies cough and Denies dyspnea Gastrointestinal: Gastrointestinal: Reports no additional gastrointestinal complaints, Denies abdominal pain, Denies diarrhea, Denies nausea and Denies vomiting Genitourinary: Genitourinary: Denies urinary incontinence Musculoskeletal: Musculoskeletal: Reports no additional musculoskeletal complaints, Denies back pain, Denies arthralgias, Denies joint swelling, Denies neck pain, Denies numbness and Denies tingling Integumentary/Breasts: Skin/Breast: Reports system reviewed and no additional complaints, except as docu, Reports swelling, Reports erythema and Denies rash Neurologic: Reports system reviewed and no additional complaints, except as documented, Denies Abnormal speech present, Denies dizziness, Denies headache(s), Denies numbness, Denies tingling and Denies weakness [facility] Past Medical History Attestation statement: The following information was validated with the patient. Source: old records reviewed and nursing notes reviewed Medical History Diabetic acetonemia Social History Social History Alcohol intake: never Substance Use Type: Marijuana Advance Directives: No Advance Directives Information Provided: No Physical Exam Vital Signs: Vital Signs: Last Vital Signs Temp 98 F 08/11/21 14:21 Pulse 73 08/11/21 14:21 Resp 19 08/11/21 14:21 BP 107/64 08/11/21 14:21 Pulse Ox 98 08/11/21 14:21 BMI result Body Mass Index 25.4 Const: General: cooperative, healthy appearing, comfortable and no acute distress Orientation/consciousness: patient oriented x3 Limitations: no limitations HENMT: Head: Yes normal to inspection Ears: hearing grossly normal bilaterally General nose exam: Normal external nose present Face and sinus: Yes normal facial exam Mouth: Normal oral and palatal mucosa present Throat: Yes posterior oropharynx normal Eyes: General: appearance normal, both eyes and all related structures Pupils: Equal, round and reactive pupils present Neck: Neck: Yes normal visual inspection Chest: Chest palpation & inspection: normal inspection of the chest Resp: Effort & Inspection: normal respiratory effort Auscultation: clear to auscultation bilaterally Cardio: Rate: regular rate Rhythm: regular rhythm Peripheral pulses: Peripheral pulses 2+ throughout GI: Inspection: Yes normal to inspection Palpation (GI): Soft to palpation and nontender Auscultation: normal bowel sounds : Male genitals images: 1. There is an open area approximately 3 cm. It is draining purulent drainage. There is a surrounding area of induration with no additional fluctuance noted. Back/Spine/Pelvis: Thoracic/Lumbar Spine: thoracic and lumbar spine normal to inspection Skin: General skin exam: no rashes or lesions noted Neuro: General: patient oriented x3, no focal motor deficits and normal sensation to monofilament Cranial nerves: Yes Equal, round and reactive pupils present Cognition (Neuro): normal cognition Speech: No Abnormal speech present Gait exam (Neuro): Normal gait present Motor exam (neuro): 5/5 motor strength present throughout Extrem: General: Yes normal to inspection Course Course Course Narrative: 35-year-old male being treated with doxycycline for left groin cellulitis here after the area started to bleed and drain it yesterday. No fevers or chills. Patient has been compliant with his antibiotics. On exam there is a draining site with purulent drainage. There is surrounding induration with no additional fluctuance or palpable abscess underneath the skin. During the procedure I explored the wound which does tunnel underneath the skin. I manually debrided some fatty tissue but there was no clear abscess or cyst sac noted. ?lipoma that became infected. Wound culture sent. Will start patient on additional course of antibiotics and referred to surgery to follow up in 1 week. Reviewed worrisome signs and symptoms of when to return to the emergency department. Comfortable discharge home. MDM - Wound/Laceration Medical Records Attestation: I reviewed the patient's medical records. Lab Data Attestation: I reviewed the patient's lab results. Procedures Abscess I/D Site: other (groin ) Side (if applicable): left Local Anesthetic: lidocaine 2% Amount of anesthesia used (mL): 5 Technique: other (no palpable abscess, wound explored with suzanne clamps and tweezers with fatty yellow tissue manually debrided) Sent for culture/gram staining?: Yes Irrigation: Yes Packing used?: iodoform Discharge Plan Discharge Clinical Impression: Abscess Patient Disposition: Home, Self-Care Instructions: Abscess (ED) Additional Instructions: Return Friday for packing removal. If packing falls out then do not return Start new antibiotic. Continue your other antibiotic Prescriptions: New cephalexin 500 mg capsule 500 mg PO BID Qty: 14 0RF No Action prednisone 20 mg tablet 60 mg PO DAILY 3 Days Qty: 9 0RF diphenhydramine HCl [Benadryl] 25 mg capsule 25 mg PO DAILY PRN (Reason: allergic reaction) 30 Days Qty: 25 0RF pantoprazole [Protonix] 40 mg tablet,delayed release (DR/EC) 40 mg PO DAILY Qty: 30 0RF sucralfate 1 gram tablet 1 g PO TID Qty: 90 0RF dicyclomine 20 mg tablet 20 mg PO TID PRN (Reason: abdominal pain) Qty: 20 0RF ondansetron HCl [Zofran] 4 mg tablet 4 mg PO Q8H PRN (Reason: nausea and vomiting) Qty: 10 0RF sucralfate [Carafate] 1 gram tablet 1 g PO TID Qty: 20 0RF pantoprazole [Protonix] 40 mg tablet,delayed release (DR/EC) 40 mg PO DAILY Qty: 10 0RF dicyclomine 20 mg tablet 20 mg PO TID PRN (Reason: abdominal discomfort) Qty: 10 0RF doxycycline monohydrate 100 mg tablet 100 mg PO BID Qty: 20 0RF ibuprofen 600 mg tablet 600 mg PO Q6H PRN (Reason: pain) Qty: 20 0RF Referrals: Srinivasa Guzman MD [Physician] - 1 week Interventions: ED Discharge Assessment Last Done: 08/11/21 16:19
== END 2021-08-11 16:20 | disposition home or self-care (01) ==
PROVIDERS: Emergency Provider Emergency Medicine Emergency Medical Services
DX: L02.214 Cutaneous abscess of groin (principal)
CPT/HCPCS: 10060; 87071; 87205; 99284

== ENCOUNTER 2022-01-28 23:33 | Emergency (ER) | payer OTHER, SELFPAY ==
--- NOTE | ~2022-01-28 | CT_ITS ---
EXAMINATION: CT ABDOMEN AND PELVIS WITHOUT CONTRAST CLINICAL INFORMATION: Abdominal pain and leukocytosis COMPARISON: 08/04/2021 TECHNIQUE: Multidetector volumetric imaging was performed from the superior aspect of the liver through the pubic symphysis. Sagittal and coronal reformatted images were obtained on the technologist's workstation. This CT examination was performed using dose optimization techniques as appropriate, variously including the following: *Automated exposure control *Adjustment of mA and/or kV according to patient size (this includes techniques or standardized protocols for targeted exams where dose is matched to indication/reason for exam; i.e. extremities or head) *Use of iterative reconstruction technique DLP: 450 mGy-cm FINDINGS: LUNG BASES: Diffuse centrilobular and tree-in-bud nodularity appears similar to prior. LIVER, GALLBLADDER, AND BILIARY TREE: The liver is normal in size, shape, and attenuation. No focal hepatic lesion or biliary ductal dilatation is present. Gallbladder unremarkable. PANCREAS: Unremarkable. SPLEEN: Unremarkable. ADRENAL GLANDS: Unremarkable. KIDNEYS AND URETERS: The kidneys are normal in size, shape, and attenuation. No hydronephrosis, hydroureter, or calculi seen. No perinephric stranding. BLADDER: Unremarkable. GASTROINTESTINAL TRACT: The small and large bowel are unremarkable. The appendix is unremarkable. ABDOMINAL WALL: No significant hernia is appreciated. LYMPH NODES: Normal. VASCULAR: Unremarkable. PELVIC VISCERA: Mild prostatomegaly. Seminal vesicles unremarkable. OSSEOUS STRUCTURES: No acute or suspicious osseous abnormalities. CT/CT abdomen pelvis wo con IMPRESSION: * No acute findings within the abdomen or pelvis. * Diffuse tree in bud nodularity throughout both lungs compatible with bronchiolitis, infectious or inflammatory. Fleischner guidelines were followed.
[2022-01-28 23:38] VITALS: BP 128/78; PULSE 85; O2SAT 100
[2022-01-29 01:15] VITALS: BP 121/75; PULSE 77; RESP 18; TEMP 37.2; O2SAT 97; BMI 25.7
--- NOTE | 2022-01-29 01:15 | ECG_ITS ---
Test Reason : abd pain Blood Pressure : / mmHG Vent. Rate : 077 BPM Atrial Rate : 077 BPM P-R Int : 156 ms QRS Dur : 074 ms QT Int : 366 ms P-R-T Axes : 063 035 034 degrees QTc Int : 414 ms Normal sinus rhythm Normal ECG When compared with ECG of 02-OCT-2020 13:08, T wave amplitude has decreased in Anterolateral leads Referred By: Generic ED Physician Electronically Signed By:MARSHA JULIAN MD
--- NOTE | 2022-01-29 01:24 | PC.NURSE ---
POC was 248 in triage.
[2022-01-29 01:38] LABS: Hematocrit 39.1 % (42.0-52.0); Hemoglobin 13.8 g/dl (14.0-18.0); Mean Corpuscular HGB Conc 35.3 g/dl (31.0-36.0); Mean Corpuscular Hemoglobin 29.5 pg (27.0-33.0); Mean Corpuscular Volume 83.5 fL (80.0-98.0); Mean Platelet Volume 8.4 fL (9.4-12.4); Platelet Count 399 X10*3/uL (160-400); Red Blood Count 4.68 X10*6/uL (4.60-5.80); Red Cell Distribution Width 12.4 % (11.0-16.0); White Blood Count 12.3 X10*3/uL (4.8-10.8)
[2022-01-29 01:38] LABS: Glucose, Whole Blood 248 mg/dL (60-115)
[2022-01-29 02:54] LABS: Alanine Aminotransferase 15 U/L (0-40); Albumin Level 4.4 g/dL (3.5-5.0); Alkaline Phosphatase 97 U/L (39-117); Anion Gap 13 (12-20); Aspartate Amino Transferase 15 U/L (5-37); Bilirubin Direct < 0.2 mg/dL (0.0-0.5); Bilirubin Total 0.3 mg/dL (0.0-1.0); Blood Urea Nitrogen 13 mg/dL (9-16); Calcium 9.6 mg/dL (8.4-10.2); Carbon Dioxide 27 mmol/L (22-29); Chloride 101 mmol/L (96-108); Creatinine Clr Calc Pharmacy 102.2; Estimated Glomerular Filt Rate > 60; Glucose Random 241 mg/dL (60-115); Lipase 50 U/L (8-78); Sodium 137 mmol/L (135-145); Total Protein 7.2 g/dL (6.5-8.0)
[2022-01-29 03:08] VITALS: PULSE 74; RESP 15; O2SAT 100
[2022-01-29 03:52] VITALS: BP 127/76; PULSE 67; RESP 16; TEMP 37.1; O2SAT 98
--- NOTE | 2022-01-29 04:00 | ED.ABDPAIN ---
HPI - Abdominal Pain General Chief Complaint: Abdominal Pain Stated Complaint: LUQ Time Seen by Provider: 01/29/22 03:59 Source: patient and EMS Mode of arrival: EMS Limitations: no limitations History of Present Illness HPI narrative: 36-year-old female came in for evaluation of upper abdominal pain and nausea with 1 time vomiting. Pain started since yesterday morning, pain is mostly localized in the epigastric/left upper quadrant area radiates to the left shoulder, pain was described as moderate 5/10 of dull aching pain that is constant, nothing makes the pain worse or make it feel better. Patient is type 2 diabetes patient is concern of diabetes related complication. Patient declined any fever chills or diarrhea. Had a normal bowel movement, no history of abdominal surgery. patient declined using any alcohol. Related Data Previous Rx's Medication Instructions Recorded diphenhydramine HCl 25 mg capsule 25 mg PO DAILY PRN allergic 09/28/20 (Benadryl) reaction 30 days #25 caps prednisone 20 mg tablet 60 mg PO DAILY 3 days #9 tabs 09/28/20 dicyclomine 20 mg tablet 20 mg PO TID PRN abdominal pain 10/02/20 #20 tabs pantoprazole 40 mg tablet,delayed 40 mg PO DAILY #30 tabs 10/02/20 release (Protonix) sucralfate 1 gram tablet 1 g PO TID #90 tabs 10/02/20 dicyclomine 20 mg tablet 20 mg PO TID PRN abdominal 10/04/20 discomfort #10 tabs ondansetron HCl 4 mg tablet 4 mg PO Q8H PRN nausea and 10/04/20 (Zofran) vomiting #10 tabs pantoprazole 40 mg tablet,delayed 40 mg PO DAILY #10 tabs 10/04/20 release (Protonix) sucralfate 1 gram tablet (Carafate) 1 g PO TID #20 tabs 10/04/20 doxycycline monohydrate 100 mg 100 mg PO BID #20 tabs 08/04/21 tablet ibuprofen 600 mg tablet 600 mg PO Q6H PRN pain #20 tabs 08/04/21 cephalexin 500 mg capsule 500 mg PO BID #14 caps 08/11/21 omeprazole 20 mg capsule,delayed 20 mg PO DAILY #15 caps 01/29/22 release Allergies Allergy/AdvReac Type Severity Reaction Status Date / Time No Known Allergies Allergy Verified 08/04/21 15:49 Review of Systems Review of Systems All other systems are reviewed and are negative Constitutional: Reports as per HPI and Reports no additional constitutional complaints Eyes: Reports as per HPI and Reports no additional eye complaints Reports system reviewed and no additional complaints, except as documented Cardiovascular: Reports as per HPI and Reports no additional cardiovascular complaints Respiratory: Reports as per HPI and Reports no additional respiratory complaints Gastrointestinal: Reports as per HPI and Reports no additional gastrointestinal complaints Genitourinary: Reports no additional female genitourinary complaints Musculoskeletal: Reports no additional musculoskeletal complaints Skin/Breast: Reports system reviewed and no additional complaints, except as docu Psychiatric: Reports no additional psychiatric complaints Endocrine: Reports no additional endocrine complaints Hematologic/Lymphatic: Reports no additional hematologic/lymphatic complaints Allergic/Immunologic: Reports no additional allergic/immunologic complaints Reports system reviewed and no additional complaints, except as documented and Reports Abnormal speech present [facility] Past Medical History Medical History Diabetic acetonemia Social History Social History Alcohol intake: never Substance Use Type: Marijuana Advance Directives: No Physical Exam ED Vital Signs: Vital Signs - 24 hr 01/29/22 01:15 01/29/22 03:08 01/29/22 03:52 Temperature 98.9 F 98.7 F Pulse Rate 77 74 67 Respiratory Rate 18 15 16 Blood Pressure 121/75 127/76 Pulse Oximetry 97 100 98 Oxygen Delivery Method Room Air Room Air Room Air 01/29/22 05:47 Temperature 98.1 F Pulse Rate 70 Respiratory Rate 16 Blood Pressure 119/82 Pulse Oximetry 98 Oxygen Delivery Method Room Air BMI result Body Mass Index 25.7 vital signs have been reviewed as appeared to be correct. Blood pressure normal. Heart rate normal. Respiration rate normal. Temperature normal. Oxygen saturation normal. Appearance: Alert. Oriented X3. No acute distress. Head: Normal external exam. Normocephalic. Atraumatic. No Leblanc signs noted. No raccoon eyes noted Eyes: PERRLA. EOMI. Conjunctiva and sclera normal. Eyelids normal. ENT: TM's Normal. Pharynx normal. Uvula midline. Moist mucous membranes. No trismus noted. No drooling noted. No muffled voice noted. Neck: Normal inspection. Neck supple. FROM. No adenopathy. Thyroid Normal. No meningeal signs. No neck mass noted. CVS: Normal heart rate and rhythm. Heart sound normal. No murmurs noted. Pulses normal throughout. Respiratory: No respiratory distress. Painless inspiration. Breath sounds normal. No wheezes/rales/rhonchi noted. Chest nontender. No accessory muscle usage noted or decreased air movement noted. Abdomen: Soft, mild epigastric tenderness, no guarding, no rebound tenderness.. Bowel sounds normal in all 4 quadrants. No distention noted. No organomegaly noted. No visible injury noted. Back: No CVA tenderness. Full range of motion noted. Skin: Skin warm and dry. Normal skin color. Normal skin turgor. No rashes/lesions/lacerations noted. Extremities: No lower extremity edema. Extremities exhibit normal range of motion. Extremities nontender. Neuro: Oriented X 3. Cranial nerve exam: II-XII are grossly intact No motor deficit. No sensory deficit. Reflexes normal. Course Course Course Narrative: 36-year-old male Came in for evaluation of abdominal pain. Patient has slight leukocytosis today, physical exam and CT of the abdomen pelvis are consistent with acute gastritis, patient was instructed to start with clear foods in advance as tolerated, will start the patient on PPI, and follow-up with GI. MDM - Abdominal Pain Medical Records Attestation: I reviewed the patient's medical records. Lab Data Attestation: I reviewed the patient's lab results. Result diagrams: 01/29/22 01:24 01/29/22 01:24 Labs: Lab Results 01/29/22 01/29/22 01/29/22 Range/Units 01:21 01:24 01:24 WBC 12.3 H (4.8-10.8) X10*3/uL RBC 4.68 (4.60-5.80) X10*6/uL Hgb 13.8 L (14.0-18.0) g/dl Hct 39.1 L (42.0-52.0) % MCV 83.5 (80.0-98.0) fL MCH 29.5 (27.0-33.0) pg MCHC 35.3 (31.0-36.0) g/dl RDW 12.4 (11.0-16.0) % Plt Count 399 (160-400) X10*3/uL MPV 8.4 L (9.4-12.4) fL Absolute Nucleated RBC 0.000 (0.0-0.012) X10*3/uL Nucleated RBC % (auto) 0.0 (0.0-0.2) /100WBC Sodium 137 (135-145) mmol/L Potassium 4.0 (3.3-5.1) mmol/L Chloride 101 (96-108) mmol/L Carbon Dioxide 27 (22-29) mmol/L Anion Gap 13 (12-20) BUN 13 (9-16) mg/dL Creatinine 0.82 (0.5-1.4) mg/dL Estim Creat Clear Calc 102.2 Estimated GFR > 60 POC Glucose 248 H (60-115) mg/dL Random Glucose 241 H (60-115) mg/dL Calcium 9.6 (8.4-10.2) mg/dL Total Bilirubin 0.3 (0.0-1.0) mg/dL Direct Bilirubin < 0.2 (0.0-0.5) mg/dL AST 15 (5-37) U/L ALT 15 (0-40) U/L Alkaline Phosphatase 97 D (39-117) U/L Total Protein 7.2 (6.5-8.0) g/dL Albumin 4.4 (3.5-5.0) g/dL Lipase 50 (8-78) U/L Imaging Data CT abdomen and pelvis: Attestation: I personally reviewed and interpreted this imaging study as follows: Radiologist's impression: *? No acute findings within the abdomen or pelvis. *? Diffuse tree in bud nodularity throughout both lungs compatible with bronchiolitis, infectious or inflammatory. ? Discharge Plan Discharge Clinical Impression: Abdominal pain, Acute gastritis Patient Disposition: Home, Self-Care Instructions: Gastritis (ED), Diet for Stomach Ulcers and Gastritis (ED) Prescriptions: New omeprazole 20 mg capsule,delayed release(DR/EC) 20 mg PO DAILY Qty: 15 0RF No Action prednisone 20 mg tablet 60 mg PO DAILY 3 Days Qty: 9 0RF diphenhydramine HCl [Benadryl] 25 mg capsule 25 mg PO DAILY PRN (Reason: allergic reaction) 30 Days Qty: 25 0RF pantoprazole [Protonix] 40 mg tablet,delayed release (DR/EC) 40 mg PO DAILY Qty: 30 0RF sucralfate 1 gram tablet 1 g PO TID Qty: 90 0RF dicyclomine 20 mg tablet 20 mg PO TID PRN (Reason: abdominal pain) Qty: 20 0RF ondansetron HCl [Zofran] 4 mg tablet 4 mg PO Q8H PRN (Reason: nausea and vomiting) Qty: 10 0RF sucralfate [Carafate] 1 gram tablet 1 g PO TID Qty: 20 0RF pantoprazole [Protonix] 40 mg tablet,delayed release (DR/EC) 40 mg PO DAILY Qty: 10 0RF dicyclomine 20 mg tablet 20 mg PO TID PRN (Reason: abdominal discomfort) Qty: 10 0RF doxycycline monohydrate 100 mg tablet 100 mg PO BID Qty: 20 0RF ibuprofen 600 mg tablet 600 mg PO Q6H PRN (Reason: pain) Qty: 20 0RF cephalexin 500 mg capsule 500 mg PO BID Qty: 14 0RF Referrals: Richard Moon MD [Physician] -
[2022-01-29] MEDS: ondansetron HCL 4 MG/2 ML VIAL IVPUSH (04:29)
[2022-01-29] MEDS: Famotidine/PF 20 MG/2 ML VIAL IVPUSH (04:29)
[2022-01-29 05:47] VITALS: BP 119/82; PULSE 70; RESP 16; TEMP 36.7; O2SAT 98
== END 2022-01-29 06:33 | disposition home or self-care (01) ==
PROVIDERS: Emergency Provider Emergency Medicine
DX: K29.00 Acute gastritis without bleeding (principal); R10.13 Epigastric pain; F12.90 Cannabis use, unspecified, uncomplicated
CPT/HCPCS: 36415; 74176; 80053; 82248; 82947; 83690; 85027; 93005; 96374; 96375; 99284; J2405